=== PATIENT | male | born 1985 | race African-American/Black ===

== ENCOUNTER 2021-09-01 08:15 | Emergency (ER) | payer OTHER ==
[~2021-09-01] VITALS: Ht 188 cm; Wt 84.8 kg
[2021-09-01 09:10] VITALS: BP 147/96
== END 2021-09-01 10:30 | disposition home or self-care (01) ==
LOC: ER 08:15
DX: S29.012A Strain of muscle and tendon of back wall of thorax, initial encounter (principal); S16.1XXA Strain of muscle, fascia and tendon at neck level, initial encounter; S40.021A Contusion of right upper arm, initial encounter; F17.210 Nicotine dependence, cigarettes, uncomplicated; V49.9XXA Car occupant (driver) (passenger) injured in unspecified traffic accident, initial encounter; Y93.89 Activity, other specified; Y92.89 Other specified places as the place of occurrence of the external cause; Y99.8 Other external cause status
CPT/HCPCS: 72070